=== PATIENT | male | born 1930 ===

== ENCOUNTER 2017-05-28 21:57 | Inpatient (IN) | payer MEDICARE, MEDICAID ==
[2017-05-28] MEDS ORDERED: Iohexol 240 (50 ml) PO ONE (22:31)
[2017-05-28] MEDS ORDERED: Sodium Chloride 0.9% 1,000 ML IV STA (22:32)
[2017-05-28] MEDS ORDERED: Iohexol 240 (50 ml) ONE (23:04)
[2017-05-28 23:34] LABS: VENOUS BLOOD GAS PCO2 41 mmHg (40-60); VENOUS BLOOD GAS PO2 21 mm/Hg (30-55); VENOUS BLOOD PH 7.13 (7.32-7.43)
[2017-05-28 23:44] LABS: BASO # 0.1 K/uL (0.0-0.2); BASO % 0.5 % (0.0-2.0); EOS % 0.3 % (0.0-4.0); LYMPH # 3.8 K/uL (1.0-4.3); LYMPH % 32.9 % (20.0-40.0); MEAN CORPUSCULAR HEMOGLOBIN 29.2 pg (27.0-31.0); MEAN CORPUSCULAR HGB CONC 30.8 g/dL (33.0-37.0); MEAN PLATELET VOLUME 7.1 fl (7.2-11.7); MONO # 0.8 K/uL (0.0-0.8); MONO % 6.6 % (0.0-10.0); NEUT # 6.9 K/uL (1.8-7.0); NEUT % 59.7 % (50.0-75.0); NRBC % 2.4 % (0.0-0.0); RBC 2.2 Mil/uL (4.40-5.90); RED CELL DISTRIBUTION WIDTH 22.2 % (11.5-14.5); WHITE BLOOD COUNT 11.5 K/uL (4.8-10.8)
[2017-05-28 23:50] LABS: HEMOGLOBIN 6.4 g/dL (12.0-18.0)
[2017-05-28 23:54] LABS: ABG ALLEN TEST YES; ARTERIAL BLOOD GAS HCO3 17.8 mmol/L (21-28); ARTERIAL BLOOD GAS O2 SAT 97.9 % (95-98); ARTERIAL BLOOD GAS PCO2 21 mm/Hg (35-45); ARTERIAL BLOOD GAS PH 7.41 (7.35-7.45); ARTERIAL BLOOD GAS PO2 86 mm/Hg (80-100); ARTERIAL BLOOD GAS TCO2 13.9 mmol/L (22-28)
[2017-05-28 23:57] LABS: ALB/GLOB RATIO 0.8 (1.0-2.1); ALBUMIN 3.4 g/dL (3.5-5.0); CALCIUM 9.2 mg/dL (8.4-10.2); MAGNESIUM 2.7 MG/DL (1.6-2.3)
[2017-05-29] MEDS ORDERED: Sodium Chloride 0.9% 1,000 ML IV STA (00:05)
[2017-05-29 00:07] LABS: TROPONIN I 0.064 ng/mL (0.00-0.120)
--- NOTE | 2017-05-29 00:45 | ED PDOC ---
HPI: Abdomen Time Seen by Provider: 05/28/17 22:13 Chief Complaint (Nursing): GI Problem History Per: Patient, Family Onset/Duration Of Symptoms: Days Outside of [place] travel?: No Current Symptoms Are (Timing): Still Present Location Of Pain/Discomfort: Diffuse Quality Of Discomfort: Unable To Describe Additional Complaint(s): Hx of prostate CA brought in by son for diarrhea, weakness, and refusing to take medications. Son reports that for the past month he's had liquidy stools multiple times a day, however no blood/black stools, no vomiting. States that he has progressively become more weak, states that he used to drink alcohol but no longer does. Patient reports that he has "pain all over", states that it is worst in his abdomen. Son reports no fevers. No recent travel. Past Medical History Reviewed: Historical Data, Nursing Documentation, Vital Signs Vital Signs: Last Vital Signs Temp 98.7 F 05/28/17 23:01 Pulse 135 H 05/28/17 22:15 Resp 18 05/28/17 22:00 BP 144/85 05/28/17 22:00 Pulse Ox 96 05/28/17 22:15 - Medical History PMH: Pneumonia - Family History Family History: States: Unknown Family Hx - Home Medications Home Medications: Ambulatory Orders Medication Instructions Recorded Amoxicillin/Potassium Clav 1 tab PO BID 05/29/17 [Amoxicillin/Clavulanate Potassium 875 mg-125 ] Aspirin [Lo-Dose Aspirin EC] 81 mg PO DAILY 05/29/17 Docusate Sodium [Stool Softener] 100 mg PO TID 05/29/17 Ergocalciferol (Vitamin D2) 50,000 unit PO QWK 05/29/17 [Vitamin D2] Tamsulosin [Flomax] 0.4 mg PO ONCE 05/29/17 Tramadol HCl [Ultram] 50 mg PO Q6 05/29/17 - Allergies Allergies/Adverse Reactions: Allergies Allergy/AdvReac Type Severity Reaction Status Date / Time No Known Allergies Allergy Verified 05/28/17 21:59 Review of Systems ROS Statement: Except As Marked, All Systems Reviewed And Found Negative Constitutional: Negative for: Fever, Chills Gastrointestinal: Positive for: Abdominal Pain, Diarrhea Physical Exam - Reviewed Nursing Documentation Reviewed: Yes Vital Signs Reviewed: Yes - Physical Exam Appears: Positive for: Non-toxic, No Acute Distress. Negative for: Well ( tremulous, cachectic) Head Exam: Positive for: ATRAUMATIC, NORMAL INSPECTION, NORMOCEPHALIC Skin: Positive for: Normal Color, Warm, DRY Eye Exam: Positive for: EOMI, Normal appearance, PERRL ENT: Positive for: Normal ENT Inspection Neck: Positive for: Normal, Painless ROM Cardiovascular/Chest: Positive for: Regular Rate, Rhythm Respiratory: Positive for: CNT, Normal Breath Sounds Gastrointestinal/Abdominal: Positive for: Normal Exam, Bowel Sounds, Tenderness. Negative for: Organomegaly, Mass, Guarding, Rebound Back: Positive for: Normal Inspection Rectal: Positive for: Normal Exam (normal brown stool, non-melanotic) Extremity: Positive for: Normal ROM Neurologic/Psych: Positive for: Alert, slate picker II-XII. Negative for: Oriented ( confused) - Laboratory Results Result Diagrams: 05/28/17 23:30 05/28/17 23:30 - Critical Care Total Time (In Min): 90 Medical Decision Making Medical Decision Making: A/P: Hx of prostate CA p/w diarrhea, body aches, abdominal pain, weakness -Pt. ill appearing -anemic, stool guiac +, however no melena/dark stools -patient vomited after contrast, however not coffee grounds -pending CT Abdomen -will transfuse 4AM Patient started to have increased respiratory rate, vomited, while being changed patient became pale and became bradycardic and then coded. CPR initiated , epi given, ROSC achieved. During central line attempts, son decided to cease further attempts. Patient had extremely poor peripheral and central access, was able to cannulate vessel however, guide wire repeatedly kinked on several attempts. Son decided to make him DNR. Pt. currently intubated in very critical condition. Procedures - Central Line Central Line Lumen: triple Central Line Postion: internal jugular (R), internal jugular (L), femoral (R), femoral (L) Complications: unable to cannulate - Intubation Intubation Method: orotracheal Tube Size (cm): 7.0 Breath Sounds after Intubation: equal Intubation Complications: no complications Post Intubation Xray: Yes Disposition - Clinical Impression Clinical Impression: Cardiac arrest, Lactic acidosis - Disposition Disposition Time: 04:27 Condition: CRITICAL Forms: [place] (Swazi)
[2017-05-29] MEDS ORDERED: Iohexol 240 (50 ml) PO ONE (01:08)
[2017-05-29] MEDS ORDERED: Iohexol 240 (50 ml) ONE (01:37)
[2017-05-29] MEDS ORDERED: Piperacillin/Tazobact 3.375 GM in Sodium Chloride 0.9% 100 ML IVPB STA (02:23)
[2017-05-29] MEDS ORDERED: Lidocaine 1% Inj (20ml) ONE (02:59)
[2017-05-29 03:02] LABS: VENOUS BLOOD GAS BASE EXCESS -6.2 mmol/L (0.0-2.0); VENOUS BLOOD GAS PCO2 31 mmHg (40-60); VENOUS BLOOD GAS PO2 14 mm/Hg (30-55); VENOUS BLOOD PH 7.37 (7.32-7.43)
[2017-05-29] MEDS ORDERED: Iohexol 300 100 ML IJ ONE (03:04)
[2017-05-29] MEDS ORDERED: Sodium Chloride 0.9% 100 ML ONE (03:04)
--- NOTE | 2017-05-29 04:25 | CP.PCM.HP ---
History of Present Illness - History of Present Illness History of Present Illness: CC: body aches HPI: 87F PMH prostate ca presented to ED for a one month history of moderate persistent nonbloody diarrhea, associated with one day of body aches. In the ED , patient acutely became tachypneic, tachycardic, had an episode of nonbloody nonbilious brown emesis, and became pulseless. CODE BLUE called, spontaneous ROSC achieved, however pt continues to be unresponsive, +intubated. OGT out appx 300 cc coffee ground. 2 units PRBC initiated. After CODE BLUE, during central line patient, patient's son refused further attempts, made patient DNR, and does not wish to have vasopressors initiated if indicated. Patient to be admitted to ICU. PMD: Dr. Burgess Present on Admission - Present on Admission Any Indicators Present on Admission: No Past Patient History - Past Social History Smoking Status: Former Smoker - CARDIAC Hx Hypotension: Yes - PULMONARY Hx Pneumonia: Yes - GENITOURINARY/GYNECOLOGICAL Hx Prostate Cancer: Yes - PSYCHIATRIC Hx Substance Use: No - SURGICAL HISTORY Hx Surgeries: No Meds Allergies/Adverse Reactions: Allergies Allergy/AdvReac Type Severity Reaction Status Date / Time No Known Allergies Allergy Verified 05/28/17 21:59 Physical Exam - Constitutional Appears: Cachectic, Chronically Ill Additional comments: INTUBATED, UNRESPONSIVE - Head Exam Head Exam: ATRAUMATIC, NORMOCEPHALIC - Eye Exam Eye Exam: EOMI, PERRL - ENT Exam ENT Exam: Mucous Membranes Moist, Normal Exam - Respiratory Exam Respiratory Exam: Clear to Auscultation Bilateral, NORMAL BREATHING PATTERN. absent: Rales, Rhonchi Additional comments: VENTED - Cardiovascular Exam Cardiovascular Exam: RRR, +S1, +S2 - GI/Abdominal Exam GI & Abdominal Exam: Normal Bowel Sounds, Soft. absent: Mass, Organomegaly - Extremities Exam Additional comments: NO RASH, COOL TO TOUCH - Back Exam Back exam: absent: CVA tenderness (L), CVA tenderness (R) - Neurological Exam Additional comments: UNRESPONSIVE TO PAINFUL OR VERBAL STIMULI - Psychiatric Exam Additional comments: UNRESPONSIVE - Skin Skin Exam: Dry, Pallor Results - Vital Signs Recent Vital Signs: Last Vital Signs Temp 98.7 F 05/28/17 23:01 Pulse 135 H 05/28/17 22:15 Resp 18 05/28/17 22:00 BP 144/85 03/05/18 22:00 Pulse Ox 96 05/28/17 22:15 - Labs Result Diagrams: 05/28/17 23:30 05/28/17 23:30 Labs: Laboratory Results - last 24 hr 05/28/17 05/28/17 05/28/17 23:20 23:30 23:30 WBC 11.5 H RBC 2.20 L Hgb 6.4 L* Hct 20.9 L MCV 95.0 H MCH 29.2 MCHC 30.8 L RDW 22.2 H Plt Count 329 MPV 7.1 L Neut % (Auto) 59.7 Lymph % (Auto) 32.9 [place] % (Auto) 6.6 Eos % (Auto) 0.3 Baso % (Auto) 0.5 Neut # (Auto) 6.9 Lymph # (Auto) 3.8 [place] # (Auto) 0.8 Eos # (Auto) 0.0 Baso # (Auto) 0.1 pCO2 pO2 21 L HCO3 ABG pH ABG Total CO2 ABG O2 Saturation ABG Base Excess [place] Test ABG Potassium VBG pH 7.13 L* VBG pCO2 41 VBG HCO3 11.1 VBG Total CO2 14.9 L VBG O2 Sat (Calc) 25.4 L VBG Base Excess -15.0 L VBG Potassium 5.1 A-a O2 Difference Sodium 140.0 143 Chloride 106.0 101 Glucose 71 L Lactate 14.9 H* FiO2 21.0 Crit Value Called To marjorie Cruz md Crit Value Called By 302 Crit Value Read Back Y Blood Gas Notified Time 2333 Potassium 5.1 H Carbon Dioxide 15 L Anion Gap 32 H BUN 46 H Creatinine 1.5 Est GFR ( Amer) 54 Est GFR (Non-Af Amer) 44 Random Glucose 81 Calcium 9.2 Phosphorus 5.2 H Magnesium 2.7 H Total Bilirubin 0.6 AST 113 H ALT 23 Alkaline Phosphatase 635 H Troponin I 0.0640 Total Protein 7.7 Albumin 3.4 L Globulin 4.3 H Albumin/Globulin Ratio 0.8 L Lipase 76 Arterial Blood Potassium Venous Blood Potassium 5.1 Urine Color Urine Clarity Urine pH Ur Specific [place] Urine Protein Urine Glucose (UA) Urine Ketones Urine Blood Urine Nitrate Urine Bilirubin Urine Urobilinogen Ur Leukocyte Esterase Stool Occult Blood Blood Type Blood Type Confirm Antibody Screen Crossmatch BBK History Checked 05/28/17 05/29/17 05/29/17 23:48 00:15 00:16 WBC RBC Hgb Hct MCV MCH MCHC RDW Plt Count MPV Neut % (Auto) Lymph % (Auto) [place] % (Auto) Eos % (Auto) Baso % (Auto) Neut # (Auto) Lymph # (Auto) [place] # (Auto) Eos # (Auto) Baso # (Auto) pCO2 21 L pO2 86 HCO3 17.8 L ABG pH 7.41 ABG Total CO2 13.9 L ABG O2 Saturation 97.9 ABG Base Excess -9.1 L [place] Test Yes ABG Potassium 5.3 H VBG pH VBG pCO2 VBG HCO3 VBG Total CO2 VBG O2 Sat (Calc) VBG Base Excess VBG Potassium A-a O2 Difference 37.0 Sodium 138.0 Chloride 108.0 H Glucose 81 Lactate 11.5 H* FiO2 21.0 Crit Value Called To marjorie Cruz md Crit Value Called By [facility] Crit Value Read Back Y Blood Gas Notified Time 1601 Potassium Carbon Dioxide Anion Gap BUN Creatinine Est GFR ( Amer) Est GFR (Non-Af Amer) Random Glucose Calcium Phosphorus Magnesium Total Bilirubin AST ALT Alkaline Phosphatase Troponin I Total Protein Albumin Globulin Albumin/Globulin Ratio Lipase Arterial Blood Potassium 5.3 H Venous Blood Potassium Urine Color TEST NOT PERFORMED Urine Clarity TEST NOT PERFORMED Urine pH TEST NOT PERFORMED Ur Specific [place] TEST NOT PERFORMED Urine Protein TEST NOT PERFORMED Urine Glucose (UA) TEST NOT PERFORMED Urine Ketones TEST NOT PERFORMED Urine Blood TEST NOT PERFORMED Urine Nitrate TEST NOT PERFORMED Urine Bilirubin TEST NOT PERFORMED Urine Urobilinogen TEST NOT PERFORMED Ur Leukocyte Esterase TEST NOT PERFORMED Stool Occult Blood Positive H Blood Type Blood Type Confirm O POSITIVE Antibody Screen Crossmatch BBK History Checked 05/29/17 05/29/17 01:05 02:50 WBC RBC Hgb Hct MCV MCH MCHC RDW Plt Count MPV Neut % (Auto) Lymph % (Auto) [place] % (Auto) Eos % (Auto) Baso % (Auto) Neut # (Auto) Lymph # (Auto) [place] # (Auto) Eos # (Auto) Baso # (Auto) pCO2 pO2 14 L HCO3 ABG pH ABG Total CO2 ABG O2 Saturation ABG Base Excess [place] Test ABG Potassium VBG pH 7.37 VBG pCO2 31 L VBG HCO3 17.9 VBG Total CO2 18.9 L VBG O2 Sat (Calc) 19.4 L VBG Base Excess -6.2 L VBG Potassium 5.3 H A-a O2 Difference Sodium 139.0 Chloride 109.0 H Glucose 72 L Lactate 7.4 H* FiO2 21.0 Crit Value Called To Nancy amador md Crit Value Called By 302 Crit Value Read Back Y Blood Gas Notified Time 302 Potassium Carbon Dioxide Anion Gap BUN Creatinine Est GFR ( Amer) Est GFR (Non-Af Amer) Random Glucose Calcium Phosphorus Magnesium Total Bilirubin AST ALT Alkaline Phosphatase Troponin I Total Protein Albumin Globulin Albumin/Globulin Ratio Lipase Arterial Blood Potassium Venous Blood Potassium 5.3 H Urine Color Urine Clarity Urine pH Ur Specific [place] Urine Protein Urine Glucose (UA) Urine Ketones Urine Blood Urine Nitrate Urine Bilirubin Urine Urobilinogen Ur Leukocyte Esterase Stool Occult Blood Blood Type O POSITIVE Blood Type Confirm Antibody Screen Negative Crossmatch See Detail BBK History Checked No verified bt Assessment & Plan - Assessment and Plan (Free Text) Plan: 87F PMH prostate ca presented to ED for a one month history of moderate persistent nonbloody diarrhea, associated with one day of body aches. In the ED , patient acutely became tachypneic, tachycardic, had an episode of nonbloody nonbilious brown emesis, and became apneic and pulseless. CODE BLUE called, spontaneous ROSC achieved, however pt continues to be unresponsive, +intubated. OGT out appx 300 cc coffeeground. 2 units PRBC initiated. After CODE BLUE, during central line patient, patient's son refused further attempts, made patient DNR, and does not wish to have vasopressors initiated if indicated. Patient to be admitted to ICU. PATIENT IS DNR. Son does not want any vasopressors if indicated. Acute Respiratory Failure - s/p CODE BLUE - patient intubated, unresponsive - AC 16 350 100 5 - CXR pending Acute GIB Acute blood loss anemia - CT abd pending - 2 units PRBC initiated - total 3250 cc NS administered - OGT in place out appx 300 cc coffee ground on insertion Hyperkalemia - recheck in AM, pt hydrated - will treat as necessary Azotemia - total 3250 cc NS administered in ED - recheck BUN in AM Hx Prostate Ca - stable VTE ppx active GIB All discussions and evaluations with senior it project manager.
--- NOTE | 2017-05-29 06:00 | CT ---
EXAM: CT Abdomen and Pelvis With Intravenous Contrast CLINICAL HISTORY: 87 years old, male; Pain; Abdominal pain; Acute; Additional info: HX of prostate ca, weakness, abd pain, diarrhea TECHNIQUE: Axial computed tomography images of the abdomen and pelvis with intravenous contrast. All CT scans at this facility use one or more dose reduction techniques, viz.: automated exposure control; ma/kV adjustment per patient size (including targeted exams where dose is matched to indication; i.e. head); or iterative reconstruction technique. 535 images are submitted. Oral contrast was administered. Coronal and sagittal reformatted images were created and reviewed. CONTRAST: 95 mL of omnipaque 300 administered intravenously. COMPARISON: No relevant prior studies available. FINDINGS: Lower thorax: There is small right basilar pneumothorax seen on image 32 series 3. This is incompletely visualized. Small right more than left pleural effusion.Bibasilar right middle lobe and lingular nonspecific infiltrates and consolidation are present, consistent with atelectasis or pneumonia. Cardiomegaly. ABDOMEN: Liver: Fatty liver.There is a focal liver hypodensity that cannot be further characterized on the current examination. Gallbladder and bile ducts: Partially contracted gallbladder with gallbladder wall thickening and gallstones seen on image 80 series 3. Correlation with patient's voiding status is recommended. Pancreas: Unremarkable. No mass. No ductal dilation. Spleen: Unremarkable. No splenomegaly. Adrenals: Unremarkable. No mass. Kidneys and ureters: Nonobstructive left upper pole renal stone. There is physiologic distention of bilateral ureters. Stomach and bowel: Large amount of stool in the colon with rectal distention and colonic wall thickening.Correlation with patient's clinical history of constipation versus stool related colitis is recommended. There are fluid-filled MID to distal small bowel loops with air-fluid levels without contrast with very difficult to visualize transition. Correlation with clinical data is recommended to evaluate for partial versus early small bowel obstruction. Close clinical followup is recommended. There is anal distention with stool seen on image 161 series 3 likely representing incontinence. Appendix: The appendix not identified with complete certainty due to unopacified cecum and distal small bowel. There is lack of intra-abdominal fat. If clinical concern remains, a repeat study with thin sections after an appropriate time interval may allow oral contrast to opacify the cecum. PELVIS: Bladder: Bladder distention 11.4 cm . Correlation with patient's voiding status is recommended. Reproductive: Mild enlargement of prostate gland. ABDOMEN and PELVIS: Intraperitoneal space: Unremarkable. No free air. No significant fluid collection. Bones/joints: There is diffuse sclerotic and amorphous appearance to the bones. Correlation with patient's clinical history of osseous metastatic disease is recommended. Multiple low chronic compression fracture deformities. Soft tissues: Unremarkable. Vasculature: The aorta demonstrates calcified plaque and is mildly ectatic but normal in caliber. Dense calcified atherosclerotic plaque involving the proximal SMA. There is enhancement of distal SMA. There are moderate atherosclerotic calcified plaques involving bilateral renal arteries. No abdominal aortic aneurysm. Lymph nodes: Unremarkable. No enlarged lymph nodes. Tubes, lines and devices: There is feeding tube in the gastric fundus. IMPRESSION: 1. There is small right basilar pneumothorax seen on image 32 series 3. This is incompletely visualized. 2. Small right more than left pleural effusion.Bibasilar right middle lobe and lingular nonspecific infiltrates and consolidation are present, consistent with atelectasis or pneumonia. 3. Large amount of stool in the colon with rectal distention and colonic wall thickening.Correlation with patient's clinical history of constipation versus stool related colitis is recommended. 4. There are fluid-filled MID to distal small bowel loops with air-fluid levels without contrast with very difficult to visualize transition. These findings can represent ileus versus partial versus developing small bowel obstruction. Correlation with clinical data is recommended to evaluate for partial versus early small bowel obstruction. Close clinical followup is recommended. 5. Osseous metastatic disease.
[2017-05-29 07:02] VITALS: O2SAT 100
[2017-05-29] MEDS ORDERED: Influenza Vaccine 18yr & older 0.5 ML/45 MCG SYR IM ONE (07:27)
--- NOTE | 2017-05-29 07:27 | RAD ---
PROCEDURE: CHEST RADIOGRAPH, 1 VIEW HISTORY: r/o PNA COMPARISON: None available. FINDINGS: Endotracheal tube identified placed terminating at the lower trachea approximately 3.5 cm above the elvia. Further comminuted tube is identified terminating at the left upper quadrant abdomen. Telemetry at wires and external pacemaker device obscures the exam. LUNGS: Heterogeneous infiltrates affects the mid inferior right lung zone appear rather dense with borderline similar changes in the medial left base. PLEURA: No pneumothorax or pleural fluid seen. CARDIOVASCULAR: Cardiac silhouette appears normal in size. Pulmonary vascular pattern is obscured at the right eye infiltrates and appears unremarkable the left. OSSEOUS STRUCTURES: No significant abnormalities. VISUALIZED UPPER ABDOMEN: Normal. OTHER FINDINGS: None. IMPRESSION: Extensive right-sided infiltrate at the mid to inferior right lung zone, borderline at the medial left base. No definite pleural effusion or pneumothorax. Telemetry wires and external pacer device obscures exam.
[2017-05-29 08:00] LABS: SQUAMOUS EPITHIAL 1 /hpf (0-5); URINE BACTERIA RARE (<OCC); URINE BILIRUBIN NEGATIVE (NEGATIVE); URINE BLOOD MODERATE (NEGATIVE); URINE CLARITY CLOUDY (Clear); URINE COLOR YELLOW (YELLOW); URINE GLUCOSE (UA) NEG (Normal); URINE LEUKOCYTE ESTERASE NEG Leu/uL (Negative); URINE NITRATE NEGATIVE (NEGATIVE); URINE PROTEIN 30 mg/dL (NEGATIVE); URINE UROBILINOGEN 0.2-1.0 mg/dL (0.2-1.0)
[2017-05-29 08:17] VITALS: RESP 35
[2017-05-29] MEDS ORDERED: Sodium Chloride 0.9% 500 ML IV ONE (08:39)
[2017-05-29 08:45] VITALS: BP 62/48; PULSE 120; TEMP 98.7
[2017-05-29] MEDS ORDERED: Pantoprazole 40 MG in Sodium Chloride 0.9% 100 ML IVPB SCH (09:00)
[2017-05-29 09:18] LABS: HEMOGLOBIN 8.1 g/dL (12.0-18.0); MEAN CORPUSCULAR HEMOGLOBIN 29.3 pg (27.0-31.0); MEAN CORPUSCULAR HGB CONC 33.2 g/dL (33.0-37.0); RBC 2.78 Mil/uL (4.40-5.90); RED CELL DISTRIBUTION WIDTH 19.6 % (11.5-14.5); WHITE BLOOD COUNT 5.4 K/uL (4.8-10.8)
[2017-05-29 09:21] LABS: MEAN CELL VOLUME 88.2 fl (80.0-94.0)
[2017-05-29 09:31] LABS: CALCIUM 6.9 mg/dL (8.4-10.2); MAGNESIUM 2.4 MG/DL (1.6-2.3)
[2017-05-29 09:34] LABS: ABG ALLEN TEST YES; ARTERIAL BLOOD GAS HCO3 14.5 mmol/L (21-28); ARTERIAL BLOOD GAS HEMOGLOBIN 7.9 g/dL (11.7-17.4); ARTERIAL BLOOD GAS O2 CONTENT 10.6 ML/dL (15-23); ARTERIAL BLOOD GAS O2 SAT 96.6 % (95-98); ARTERIAL BLOOD GAS PCO2 23 mm/Hg (35-45); ARTERIAL BLOOD GAS PH 7.31 (7.35-7.45); ARTERIAL BLOOD GAS PO2 67 mm/Hg (80-100); ARTERIAL BLOOD GAS TCO2 12.3 mmol/L (22-28)
[2017-05-29] MEDS ORDERED: DOPamine 400mg/250ml D5W 400 MG/250 ML BAG IV ONE ×2 (09:40)
[2017-05-29] MEDS ORDERED: Dextrose 50% SYRINGE Inj (50 ml) ONE ×2 (09:53→10:21)
--- NOTE | 2017-05-29 10:04 | CP.PCM.CON ---
<Jesse Evans - Last Filed: 05/29/17 10:04> History of Present Illness - History of Present Illness History of Present Illness: PGY5 GI Fellow Consult Note Patient is an 87yo male with PMHx significant for EtOH abuse, prostate cancer, HTN who was brought to the emergency room by his son for diarrhea and diffuse body aches. For the last month or more the patient has had decreased appetite and complaint of abdominal pain. He too has had diarrhea with more than 4-5 episodes daily despite poor intake. As symptoms persisted and his father complained of diffuse body aches, son brought him to the ED for further evaluation. In the ED the patient suffered cardiopulmonary arrest and was resuscitated by ACLS protocol and was intubated. He was transfused two units of PRBCs when his HGb was noted to be 6 on CBC. Following this episode, the patient 's son asked for DNR status and refused pressor support. Currently, he is in the ICU where he remains intubated on mechanical ventilation and has OG tube, rectal tube and aquino catheters placed. Our service was consulted for anemia and dark black output in to the OG tube. During discussion with the son and , they decided wanted to make the patient full code. While I was at bedside, the patient became bradycardic and eventually suffered cardiac arrest. Code blue was called and is currently ongoing. PMHx: See HPI PSHx: Unable to obtain at this time FHx: Unable to obtain at this time Social: Former EtOH abuse, former tobacco use, no illicit drug use Endo: Unable to assess at this time 12 system ROS cannot be completed given clinical condition Past Patient History - Past Medical History & Family History Past Medical History?: Yes - Past Social History Smoking Status: Former Smoker - CARDIAC Hx Hypotension: Yes - PULMONARY Hx Pneumonia: Yes - NEUROLOGICAL HX Cerebrovascular Accident: Yes - HEMATOLOGICAL/ONCOLOGICAL Hx Cancer: Yes - MUSCULOSKELETAL/RHEUMATOLOGICAL Hx Falls: No - GASTROINTESTINAL Hx Diarrhea: Yes - GENITOURINARY/GYNECOLOGICAL Hx Prostate Cancer: Yes - PSYCHIATRIC Hx Substance Use: No - SURGICAL HISTORY Hx Surgeries: No Meds Allergies/Adverse Reactions: Allergies Allergy/AdvReac Type Severity Reaction Status Date / Time No Known Allergies Allergy Verified 05/28/17 21:59 - Medications Medications: Current Medications Pantoprazole Sodium 40 mg/ (Sodium Chloride) 100 mls @ 100 mls/hr IVPB Q5H DALIA PRN Reason: Per Protocol Piperacillin Sod/Tazobactam (Sod 3.375 gm/ Sodium Chloride) 100 mls @ 100 mls/ hr IVPB RQ8 DALIA PRN Reason: Protocol Physical Exam - Constitutional Appears: Cachectic, Chronically Ill Additional comments: intubated, not responding to tactile stimuli - Eye Exam Eye Exam: PERRL - ENT Exam ENT Exam: Mucous Membranes Dry Additional comments: OG tube in place, black fluid draining - Respiratory Exam Respiratory Exam: Clear to Auscultation Bilateral. absent: Rales, Rhonchi, Wheezes - Cardiovascular Exam Cardiovascular Exam: Tachycardia, +S1, +S2 Additional comments: patient became bradycardic and ultimately suffered cardiac arrest - GI/Abdominal Exam GI & Abdominal Exam: Normal Bowel Sounds, Soft. absent: Distended, Firm, Organomegaly, Rigid, Tenderness - Rectal Exam Additional comments: brown stool in rectal tube - Extremities Exam Extremities exam: Positive for: normal inspection. Negative for: pedal edema - Skin Skin Exam: Dry, Warm Results - Vital Signs Recent Vital Signs: Last Vital Signs Temp 98.7 F 05/29/17 08:35 Pulse 120 H 05/29/17 08:35 Resp 35 H 05/29/17 08:35 BP 62/48 L 05/29/17 08:35 Pulse Ox 100 05/29/17 08:35 - Labs Result Diagrams: 05/29/17 08:50 05/29/17 08:50 Labs: Laboratory Results - last 24 hr 05/28/17 05/28/17 05/28/17 23:20 23:30 23:30 WBC 11.5 H RBC 2.20 L Hgb 6.4 L* Hct 20.9 L MCV 95.0 H MCH 29.2 MCHC 30.8 L RDW 22.2 H Plt Count 329 MPV 7.1 L Neut % (Auto) 59.7 Lymph % (Auto) 32.9 Payne % (Auto) 6.6 Eos % (Auto) 0.3 Baso % (Auto) 0.5 Neut # (Auto) 6.9 Lymph # (Auto) 3.8 Payne # (Auto) 0.8 Eos # (Auto) 0.0 Baso # (Auto) 0.1 pCO2 pO2 21 L HCO3 ABG pH ABG Total CO2 ABG O2 Saturation ABG O2 Content ABG Base Excess ABG Hemoglobin ABG Carboxyhemoglobin POC ABG HHb (Measured) ABG Methemoglobin ABG O2 Capacity [place] Test ABG Potassium VBG pH 7.13 L* VBG pCO2 41 VBG HCO3 11.1 VBG Total CO2 14.9 L VBG O2 Sat (Calc) 25.4 L VBG Base Excess -15.0 L VBG Potassium 5.1 A-a O2 Difference Hgb O2 Saturation Sodium 140.0 143 Chloride 106.0 101 Glucose 71 L Lactate 14.9 H* Vent Mode Mechanical Rate FiO2 21.0 Tidal Volume PEEP Crit Value Called To marjorie Cruz md Crit Value Called By Becka Crit Value Read Back Y Blood Gas Notified Time 2333 Potassium 5.1 H Carbon Dioxide 15 L Anion Gap 32 H BUN 46 H Creatinine 1.5 Est GFR ( Amer) 54 Est GFR (Non-Af Amer) 44 POC Glucose (mg/dL) Random Glucose 81 Calcium 9.2 Phosphorus 5.2 H Magnesium 2.7 H Total Bilirubin 0.6 AST 113 H ALT 23 Alkaline Phosphatase 635 H Troponin I 0.0640 Total Protein 7.7 Albumin 3.4 L Globulin 4.3 H Albumin/Globulin Ratio 0.8 L Lipase 76 Arterial Blood Potassium Venous Blood Potassium 5.1 Urine Color Urine Clarity Urine pH Ur Specific [place] Urine Protein Urine Glucose (UA) Urine Ketones Urine Blood Urine Nitrate Urine Bilirubin Urine Urobilinogen Ur Leukocyte Esterase Urine RBC (Auto) Urine Microscopic WBC Ur Squamous Epith Cells Urine Bacteria Stool Occult Blood Blood Type Blood Type Confirm Antibody Screen Crossmatch BBK History Checked 05/28/17 05/29/17 05/29/17 23:48 00:15 00:16 WBC RBC Hgb Hct MCV MCH MCHC RDW Plt Count MPV Neut % (Auto) Lymph % (Auto) Payne % (Auto) Eos % (Auto) Baso % (Auto) Neut # (Auto) Lymph # (Auto) Payne # (Auto) Eos # (Auto) Baso # (Auto) pCO2 21 L pO2 86 HCO3 17.8 L ABG pH 7.41 ABG Total CO2 13.9 L ABG O2 Saturation 97.9 ABG O2 Content ABG Base Excess -9.1 L ABG Hemoglobin ABG Carboxyhemoglobin POC ABG HHb (Measured) ABG Methemoglobin ABG O2 Capacity [place] Test Yes ABG Potassium 5.3 H VBG pH VBG pCO2 VBG HCO3 VBG Total CO2 VBG O2 Sat (Calc) VBG Base Excess VBG Potassium A-a O2 Difference 37.0 Hgb O2 Saturation Sodium 138.0 Chloride 108.0 H Glucose 81 Lactate 11.5 H* Vent Mode Mechanical Rate FiO2 21.0 Tidal Volume PEEP Crit Value Called To marjorie Cruz md Crit Value Called By 302 Crit Value Read Back Y Blood Gas Notified Time 2353 Potassium Carbon Dioxide Anion Gap BUN Creatinine Est GFR ( Amer) Est GFR (Non-Af Amer) POC Glucose (mg/dL) Random Glucose Calcium Phosphorus Magnesium Total Bilirubin AST ALT Alkaline Phosphatase Troponin I Total Protein Albumin Globulin Albumin/Globulin Ratio Lipase Arterial Blood Potassium 5.3 H Venous Blood Potassium Urine Color TEST NOT PERFORMED Urine Clarity TEST NOT PERFORMED Urine pH TEST NOT PERFORMED Ur Specific [place] TEST NOT PERFORMED Urine Protein TEST NOT PERFORMED Urine Glucose (UA) TEST NOT PERFORMED Urine Ketones TEST NOT PERFORMED Urine Blood TEST NOT PERFORMED Urine Nitrate TEST NOT PERFORMED Urine Bilirubin TEST NOT PERFORMED Urine Urobilinogen TEST NOT PERFORMED Ur Leukocyte Esterase TEST NOT PERFORMED Urine RBC (Auto) Urine Microscopic WBC Ur Squamous Epith Cells Urine Bacteria Stool Occult Blood Positive H Blood Type Blood Type Confirm O POSITIVE Antibody Screen Crossmatch BBK History Checked 05/29/17 05/29/17 05/29/17 01:05 02:50 06:59 WBC RBC Hgb Hct MCV MCH MCHC RDW Plt Count MPV Neut % (Auto) Lymph % (Auto) Payne % (Auto) Eos % (Auto) Baso % (Auto) Neut # (Auto) Lymph # (Auto) Payne # (Auto) Eos # (Auto) Baso # (Auto) pCO2 pO2 14 L HCO3 ABG pH ABG Total CO2 ABG O2 Saturation ABG O2 Content ABG Base Excess ABG Hemoglobin ABG Carboxyhemoglobin POC ABG HHb (Measured) ABG Methemoglobin ABG O2 Capacity [place] Test ABG Potassium VBG pH 7.37 VBG pCO2 31 L VBG HCO3 17.9 VBG Total CO2 18.9 L VBG O2 Sat (Calc) 19.4 L VBG Base Excess -6.2 L VBG Potassium 5.3 H A-a O2 Difference Hgb O2 Saturation Sodium 139.0 Chloride 109.0 H Glucose 72 L Lactate 7.4 H* Vent Mode Mechanical Rate FiO2 21.0 Tidal Volume PEEP Crit Value Called To Nancy amador md Crit Value Called By 302 Crit Value Read Back Y Blood Gas Notified Time 302 Potassium Carbon Dioxide Anion Gap BUN Creatinine Est GFR ( Amer) Est GFR (Non-Af Amer) POC Glucose (mg/dL) Random Glucose Calcium Phosphorus Magnesium Total Bilirubin AST ALT Alkaline Phosphatase Troponin I Total Protein Albumin Globulin Albumin/Globulin Ratio Lipase Arterial Blood Potassium Venous Blood Potassium 5.3 H Urine Color Yellow Urine Clarity Cloudy Urine pH 5.0 Ur Specific [place] 1.020 Urine Protein 30 Urine Glucose (UA) Neg Urine Ketones Negative Urine Blood Moderate Urine Nitrate Negative Urine Bilirubin Negative Urine Urobilinogen 0.2-1.0 Ur Leukocyte Esterase Neg Urine RBC (Auto) 1 Urine Microscopic WBC 3 Ur Squamous Epith Cells 1 Urine Bacteria Rare Stool Occult Blood Blood Type O POSITIVE Blood Type Confirm Antibody Screen Negative Crossmatch See Detail BBK History Checked No verified bt 05/29/17 05/29/17 05/29/17 08:50 08:50 09:27 WBC 5.4 D RBC 2.78 L Hgb 8.1 L Hct 24.5 L MCV 88.2 D MCH 29.3 MCHC 33.2 RDW 19.6 H Plt Count 196 D MPV Neut % (Auto) Lymph % (Auto) Payne % (Auto) Eos % (Auto) Baso % (Auto) Neut # (Auto) Lymph # (Auto) Payne # (Auto) Eos # (Auto) Baso # (Auto) pCO2 23 L pO2 67 L HCO3 14.5 L ABG pH 7.31 L ABG Total CO2 12.3 L ABG O2 Saturation 96.6 ABG O2 Content 10.6 L ABG Base Excess -13.3 L ABG Hemoglobin 7.9 L ABG Carboxyhemoglobin 1.4 POC ABG HHb (Measured) 3.3 ABG Methemoglobin 0.7 ABG O2 Capacity 11.0 L [place] Test Yes ABG Potassium VBG pH VBG pCO2 VBG HCO3 VBG Total CO2 VBG O2 Sat (Calc) VBG Base Excess VBG Potassium A-a O2 Difference 617.0 Hgb O2 Saturation 94.6 L Sodium 141 Chloride 108 H Glucose Lactate Vent Mode Prvc/ac Mechanical Rate 16 FiO2 100.0 Tidal Volume 350 PEEP 5 Crit Value Called To Crit Value Called By Crit Value Read Back Blood Gas Notified Time Potassium 5.8 H Carbon Dioxide 14 L Anion Gap 25 H BUN 50 H Creatinine 1.8 H Est GFR ( Amer) 44 Est GFR (Non-Af Amer) 36 POC Glucose (mg/dL) Random Glucose 56 L Calcium 6.9 L Phosphorus 6.5 H Magnesium 2.4 H Total Bilirubin AST ALT Alkaline Phosphatase Troponin I Total Protein Albumin Globulin Albumin/Globulin Ratio Lipase Arterial Blood Potassium Venous Blood Potassium Urine Color Urine Clarity Urine pH Ur Specific [place] Urine Protein Urine Glucose (UA) Urine Ketones Urine Blood Urine Nitrate Urine Bilirubin Urine Urobilinogen Ur Leukocyte Esterase Urine RBC (Auto) Urine Microscopic WBC Ur Squamous Epith Cells Urine Bacteria Stool Occult Blood Blood Type Blood Type Confirm Antibody Screen Crossmatch BBK History Checked 05/29/17 09:51 WBC RBC Hgb Hct MCV MCH MCHC RDW Plt Count MPV Neut % (Auto) Lymph % (Auto) Payne % (Auto) Eos % (Auto) Baso % (Auto) Neut # (Auto) Lymph # (Auto) Payne # (Auto) Eos # (Auto) Baso # (Auto) pCO2 pO2 HCO3 ABG pH ABG Total CO2 ABG O2 Saturation ABG O2 Content ABG Base Excess ABG Hemoglobin ABG Carboxyhemoglobin POC ABG HHb (Measured) ABG Methemoglobin ABG O2 Capacity [place] Test ABG Potassium VBG pH VBG pCO2 VBG HCO3 VBG Total CO2 VBG O2 Sat (Calc) VBG Base Excess VBG Potassium A-a O2 Difference Hgb O2 Saturation Sodium Chloride Glucose Lactate Vent Mode Mechanical Rate FiO2 Tidal Volume PEEP Crit Value Called To Crit Value Called By Crit Value Read Back Blood Gas Notified Time Potassium Carbon Dioxide Anion Gap BUN Creatinine Est GFR ( Amer) Est GFR (Non-Af Amer) POC Glucose (mg/dL) < 20 L* Random Glucose Calcium Phosphorus Magnesium Total Bilirubin AST ALT Alkaline Phosphatase Troponin I Total Protein Albumin Globulin Albumin/Globulin Ratio Lipase Arterial Blood Potassium Venous Blood Potassium Urine Color Urine Clarity Urine pH Ur Specific [place] Urine Protein Urine Glucose (UA) Urine Ketones Urine Blood Urine Nitrate Urine Bilirubin Urine Urobilinogen Ur Leukocyte Esterase Urine RBC (Auto) Urine Microscopic WBC Ur Squamous Epith Cells Urine Bacteria Stool Occult Blood Blood Type Blood Type Confirm Antibody Screen Crossmatch BBK History Checked Assessment & Plan - Assessment and Plan (Free Text) Assessment: Patient is an 87yo male with PMHx significant for EtOH abuse, prostate cancer, HTN who was brought to the emergency room by his son for diarrhea and diffuse body aches -Acute cardiac arrest requiring code blue and ACLS protocol -S/P cardiac arrest yesterday with ROSC -Acute blood loss anemia - suspect upper GI bleeding -H/O EtOH abuse Plan: -Family decided to pursue full code this morning -Will initiate PPI gtt and recommend consideration of octreotide gtt given EtOH abuse history and unknown cirrhosis/EV status -S/P 2 units PRBCs, transfusion support as needed -No overt stigmata of cirrhosis noted -Patient currently code blue with ACLS protocol -Prognosis grave - discussed with family -If patient achieves ROSC and is resuscitated adequately, could consider emergent upper endoscopy; however at this time, patient is in grave condition and would not survive procedure -Will follow - Date & Time Date: 05/29/17 Time: 09:00 <Serafin Clifton - Last Filed: 05/29/17 10:47> Meds - Medications Medications: Current Medications Pantoprazole Sodium 40 mg/ (Sodium Chloride) 100 mls @ 100 mls/hr IVPB Q5H DALIA PRN Reason: Per Protocol Piperacillin Sod/Tazobactam (Sod 3.375 gm/ Sodium Chloride) 100 mls @ 100 mls/ hr IVPB RQ8 DALIA PRN Reason: Protocol Results - Vital Signs Recent Vital Signs: Last Vital Signs Temp 98.7 F 05/29/17 08:35 Pulse 120 H 05/29/17 08:35 Resp 35 H 05/29/17 08:35 BP 62/48 L 05/29/17 08:35 Pulse Ox 100 05/29/17 08:35 - Labs Result Diagrams: 05/29/17 08:50 05/29/17 08:50 Labs: Laboratory Results - last 24 hr 05/28/17 05/28/17 05/28/17 23:20 23:30 23:30 WBC 11.5 H RBC 2.20 L Hgb 6.4 L* Hct 20.9 L MCV 95.0 H MCH 29.2 MCHC 30.8 L RDW 22.2 H Plt Count 329 MPV 7.1 L Neut % (Auto) 59.7 Lymph % (Auto) 32.9 Payne % (Auto) 6.6 Eos % (Auto) 0.3 Baso % (Auto) 0.5 Neut # (Auto) 6.9 Lymph # (Auto) 3.8 Payne # (Auto) 0.8 Eos # (Auto) 0.0 Baso # (Auto) 0.1 pCO2 pO2 21 L HCO3 ABG pH ABG Total CO2 ABG O2 Saturation ABG O2 Content ABG Base Excess ABG Hemoglobin ABG Carboxyhemoglobin POC ABG HHb (Measured) ABG Methemoglobin ABG O2 Capacity [place] Test ABG Potassium VBG pH 7.13 L* VBG pCO2 41 VBG HCO3 11.1 VBG Total CO2 14.9 L VBG O2 Sat (Calc) 25.4 L VBG Base Excess -15.0 L VBG Potassium 5.1 A-a O2 Difference Hgb O2 Saturation Sodium 140.0 143 Chloride 106.0 101 Glucose 71 L Lactate 14.9 H* Vent Mode Mechanical Rate FiO2 21.0 Tidal Volume PEEP Crit Value Called To marjorie Cruz md Crit Value Called By 302 Crit Value Read Back Y Blood Gas Notified Time 2333 Potassium 5.1 H Carbon Dioxide 15 L Anion Gap 32 H BUN 46 H Creatinine 1.5 Est GFR ( Amer) 54 Est GFR (Non-Af Amer) 44 POC Glucose (mg/dL) Random Glucose 81 Calcium 9.2 Phosphorus 5.2 H Magnesium 2.7 H Total Bilirubin 0.6 AST 113 H ALT 23 Alkaline Phosphatase 635 H Troponin I 0.0640 Total Protein 7.7 Albumin 3.4 L Globulin 4.3 H Albumin/Globulin Ratio 0.8 L Lipase 76 Arterial Blood Potassium Venous Blood Potassium 5.1 Urine Color Urine Clarity Urine pH Ur Specific [place] Urine Protein Urine Glucose (UA) Urine Ketones Urine Blood Urine Nitrate Urine Bilirubin Urine Urobilinogen Ur Leukocyte Esterase Urine RBC (Auto) Urine Microscopic WBC Ur Squamous Epith Cells Urine Bacteria Stool Occult Blood Blood Type Blood Type Confirm Antibody Screen Crossmatch BBK History Checked 05/28/17 05/29/17 05/29/17 23:48 00:15 00:16 WBC RBC Hgb Hct MCV MCH MCHC RDW Plt Count MPV Neut % (Auto) Lymph % (Auto) Payne % (Auto) Eos % (Auto) Baso % (Auto) Neut # (Auto) Lymph # (Auto) Payne # (Auto) Eos # (Auto) Baso # (Auto) pCO2 21 L pO2 86 HCO3 17.8 L ABG pH 7.41 ABG Total CO2 13.9 L ABG O2 Saturation 97.9 ABG O2 Content ABG Base Excess -9.1 L ABG Hemoglobin ABG Carboxyhemoglobin POC ABG HHb (Measured) ABG Methemoglobin ABG O2 Capacity [place] Test Yes ABG Potassium 5.3 H VBG pH VBG pCO2 VBG HCO3 VBG Total CO2 VBG O2 Sat (Calc) VBG Base Excess VBG Potassium A-a O2 Difference 37.0 Hgb O2 Saturation Sodium 138.0 Chloride 108.0 H Glucose 81 Lactate 11.5 H* Vent Mode Mechanical Rate FiO2 21.0 Tidal Volume PEEP Crit Value Called To marjorie Cruz md Crit Value Called By 302 Crit Value Read Back Y Blood Gas Notified Time 2357 Potassium Carbon Dioxide Anion Gap BUN Creatinine Est GFR ( Amer) Est GFR (Non-Af Amer) POC Glucose (mg/dL) Random Glucose Calcium Phosphorus Magnesium Total Bilirubin AST ALT Alkaline Phosphatase Troponin I Total Protein Albumin Globulin Albumin/Globulin Ratio Lipase Arterial Blood Potassium 5.3 H Venous Blood Potassium Urine Color TEST NOT PERFORMED Urine Clarity TEST NOT PERFORMED Urine pH TEST NOT PERFORMED Ur Specific [place] TEST NOT PERFORMED Urine Protein TEST NOT PERFORMED Urine Glucose (UA) TEST NOT PERFORMED Urine Ketones TEST NOT PERFORMED Urine Blood TEST NOT PERFORMED Urine Nitrate TEST NOT PERFORMED Urine Bilirubin TEST NOT PERFORMED Urine Urobilinogen TEST NOT PERFORMED Ur Leukocyte Esterase TEST NOT PERFORMED Urine RBC (Auto) Urine Microscopic WBC Ur Squamous Epith Cells Urine Bacteria Stool Occult Blood Positive H Blood Type Blood Type Confirm O POSITIVE Antibody Screen Crossmatch BBK History Checked 05/29/17 05/29/17 05/29/17 01:05 02:50 06:59 WBC RBC Hgb Hct MCV MCH MCHC RDW Plt Count MPV Neut % (Auto) Lymph % (Auto) Payne % (Auto) Eos % (Auto) Baso % (Auto) Neut # (Auto) Lymph # (Auto) Payne # (Auto) Eos # (Auto) Baso # (Auto) pCO2 pO2 14 L HCO3 ABG pH ABG Total CO2 ABG O2 Saturation ABG O2 Content ABG Base Excess ABG Hemoglobin ABG Carboxyhemoglobin POC ABG HHb (Measured) ABG Methemoglobin ABG O2 Capacity [place] Test ABG Potassium VBG pH 7.37 VBG pCO2 31 L VBG HCO3 17.9 VBG Total CO2 18.9 L VBG O2 Sat (Calc) 19.4 L VBG Base Excess -6.2 L VBG Potassium 5.3 H A-a O2 Difference Hgb O2 Saturation Sodium 139.0 Chloride 109.0 H Glucose 72 L Lactate 7.4 H* Vent Mode Mechanical Rate FiO2 21.0 Tidal Volume PEEP Crit Value Called To Nancy amador md Crit Value Called By 302 Crit Value Read Back Y Blood Gas Notified Time 302 Potassium Carbon Dioxide Anion Gap BUN Creatinine Est GFR ( Amer) Est GFR (Non-Af Amer) POC Glucose (mg/dL) Random Glucose Calcium Phosphorus Magnesium Total Bilirubin AST ALT Alkaline Phosphatase Troponin I Total Protein Albumin Globulin Albumin/Globulin Ratio Lipase Arterial Blood Potassium Venous Blood Potassium 5.3 H Urine Color Yellow Urine Clarity Cloudy Urine pH 5.0 Ur Specific [place] 1.020 Urine Protein 30 Urine Glucose (UA) Neg Urine Ketones Negative Urine Blood Moderate Urine Nitrate Negative Urine Bilirubin Negative Urine Urobilinogen 0.2-1.0 Ur Leukocyte Esterase Neg Urine RBC (Auto) 1 Urine Microscopic WBC 3 Ur Squamous Epith Cells 1 Urine Bacteria Rare Stool Occult Blood Blood Type O POSITIVE Blood Type Confirm Antibody Screen Negative Crossmatch See Detail BBK History Checked No verified bt 05/29/17 05/29/17 05/29/17 08:50 08:50 09:27 WBC 5.4 D RBC 2.78 L Hgb 8.1 L Hct 24.5 L MCV 88.2 D MCH 29.3 MCHC 33.2 RDW 19.6 H Plt Count 196 D MPV Neut % (Auto) Lymph % (Auto) Payne % (Auto) Eos % (Auto) Baso % (Auto) Neut # (Auto) Lymph # (Auto) Payne # (Auto) Eos # (Auto) Baso # (Auto) pCO2 23 L pO2 67 L HCO3 14.5 L ABG pH 7.31 L ABG Total CO2 12.3 L ABG O2 Saturation 96.6 ABG O2 Content 10.6 L ABG Base Excess -13.3 L ABG Hemoglobin 7.9 L ABG Carboxyhemoglobin 1.4 POC ABG HHb (Measured) 3.3 ABG Methemoglobin 0.7 ABG O2 Capacity 11.0 L [place] Test Yes ABG Potassium VBG pH VBG pCO2 VBG HCO3 VBG Total CO2 VBG O2 Sat (Calc) VBG Base Excess VBG Potassium A-a O2 Difference 617.0 Hgb O2 Saturation 94.6 L Sodium 141 Chloride 108 H Glucose Lactate Vent Mode Prvc/ac Mechanical Rate 16 FiO2 100.0 Tidal Volume 350 PEEP 5 Crit Value Called To Crit Value Called By Crit Value Read Back Blood Gas Notified Time Potassium 5.8 H Carbon Dioxide 14 L Anion Gap 25 H BUN 50 H Creatinine 1.8 H Est GFR ( Amer) 44 Est GFR (Non-Af Amer) 36 POC Glucose (mg/dL) Random Glucose 56 L Calcium 6.9 L Phosphorus 6.5 H Magnesium 2.4 H Total Bilirubin AST ALT Alkaline Phosphatase Troponin I Total Protein Albumin Globulin Albumin/Globulin Ratio Lipase Arterial Blood Potassium Venous Blood Potassium Urine Color Urine Clarity Urine pH Ur Specific [place] Urine Protein Urine Glucose (UA) Urine Ketones Urine Blood Urine Nitrate Urine Bilirubin Urine Urobilinogen Ur Leukocyte Esterase Urine RBC (Auto) Urine Microscopic WBC Ur Squamous Epith Cells Urine Bacteria Stool Occult Blood Blood Type Blood Type Confirm Antibody Screen Crossmatch BBK History Checked 05/29/17 05/29/17 09:51 10:06 WBC RBC Hgb Hct MCV MCH MCHC RDW Plt Count MPV Neut % (Auto) Lymph % (Auto) Payne % (Auto) Eos % (Auto) Baso % (Auto) Neut # (Auto) Lymph # (Auto) Payne # (Auto) Eos # (Auto) Baso # (Auto) pCO2 pO2 HCO3 ABG pH ABG Total CO2 ABG O2 Saturation ABG O2 Content ABG Base Excess ABG Hemoglobin ABG Carboxyhemoglobin POC ABG HHb (Measured) ABG Methemoglobin ABG O2 Capacity [place] Test ABG Potassium VBG pH VBG pCO2 VBG HCO3 VBG Total CO2 VBG O2 Sat (Calc) VBG Base Excess VBG Potassium A-a O2 Difference Hgb O2 Saturation Sodium Chloride Glucose Lactate Vent Mode Mechanical Rate FiO2 Tidal Volume PEEP Crit Value Called To Crit Value Called By Crit Value Read Back Blood Gas Notified Time Potassium Carbon Dioxide Anion Gap BUN Creatinine Est GFR ( Amer) Est GFR (Non-Af Amer) POC Glucose (mg/dL) < 20 L* < 20 L* Random Glucose Calcium Phosphorus Magnesium Total Bilirubin AST ALT Alkaline Phosphatase Troponin I Total Protein Albumin Globulin Albumin/Globulin Ratio Lipase Arterial Blood Potassium Venous Blood Potassium Urine Color Urine Clarity Urine pH Ur Specific [place] Urine Protein Urine Glucose (UA) Urine Ketones Urine Blood Urine Nitrate Urine Bilirubin Urine Urobilinogen Ur Leukocyte Esterase Urine RBC (Auto) Urine Microscopic WBC Ur Squamous Epith Cells Urine Bacteria Stool Occult Blood Blood Type Blood Type Confirm Antibody Screen Crossmatch BBK History Checked Attending/Attestation - Attestation I have personally seen and examined this patient.: Yes I have fully participated in the care of the patient.: Yes I have reviewed all pertinent clinical information: Yes Notes (Text): 05/29/17 10:44 MICU called GI consult on this 87yo male with PMHx significant for EtOH abuse, prostate cancer, HTN who was brought to the emergency room by his son for diarrhea and diffuse body aches s/p cardiac arrest requiring code blue and ACLS protocol with drop in Hb with brown stool and OG tube with black secretions. Patient was being actively resuscitated and coding when GI team went to assess. s/p two codes with pronouncement of prior to Gi full assessment.
--- NOTE | 2017-05-29 10:43 | CP.PCM.PRO ---
Pronouncement of Note - Clinical Findings Physical Exam: No Response Verbal/Painful Stimuli, Absent Peripheral Pulses{ Carotid & Femoral}, Absent Heart & Breath Sounds, No Pupillary Light Reflex, Pupils Fixed & Dilated, Absence of Vital Signs - Pronouncement Time Time of Pronouncement of : 10:37 - Notifications Pronouncement Notifications: Family Notified, Atending Notified Election Judge Notified: Yes (released by ME at 11:13 Maite Jasso) - Autopsy Autopsy Requested: No [place] [id number]
--- NOTE | 2017-05-29 11:54 | CP.PCM.DIS ---
Provider - Provider Date of Admission: 05/29/17 04:22 Attending physician: Fallon Hargrove DO Primary care physician: Dr Burgess Consults: GI : Dr Clifton Time Spent in preparation of Discharge (in minutes): 60 Diagnosis - Discharge Diagnosis (1) Upper GI hemorrhage Status: Acute (2) Anemia Status: Acute Comment: acute sec to GI bleed (3) Cardiac arrest Status: Acute (4) Lactic acidosis Status: Acute (5) Prostate CA Status: Chronic Comment: metastatic (6) Alcohol abuse Status: Chronic Hospital Course - Lab Results Lab Results: Most Recent Lab Values WBC 5.4 K/uL (4.8-10.8) D 05/29/17 08:50 RBC 2.78 Mil/uL (4.40-5.90) L 05/29/17 08:50 Hgb 8.1 g/dL (12.0-18.0) L 05/29/17 08:50 Hct 24.5 % (35.0-51.0) L 05/29/17 08:50 MCV 88.2 fl (80.0-94.0) D 05/29/17 08:50 MCH 29.3 pg (27.0-31.0) 05/29/17 08:50 MCHC 33.2 g/dL (33.0-37.0) 05/29/17 08:50 RDW 19.6 % (11.5-14.5) H 05/29/17 08:50 Plt Count 196 K/uL (130-400) D 05/29/17 08:50 MPV 7.1 fl (7.2-11.7) L 05/28/17 23:30 Neut % (Auto) 59.7 % (50.0-75.0) 05/28/17 23:30 Lymph % (Auto) 32.9 % (20.0-40.0) 05/28/17 23:30 [place] % (Auto) 6.6 % (0.0-10.0) 05/28/17 23:30 Eos % (Auto) 0.3 % (0.0-4.0) 05/28/17 23:30 Baso % (Auto) 0.5 % (0.0-2.0) 05/28/17 23:30 Neut # (Auto) 6.9 K/uL (1.8-7.0) 05/28/17 23:30 Lymph # (Auto) 3.8 K/uL (1.0-4.3) 05/28/17 23:30 [place] # (Auto) 0.8 K/uL (0.0-0.8) 05/28/17 23:30 Eos # (Auto) 0.0 K/uL (0.0-0.7) 05/28/17 23:30 Baso # (Auto) 0.1 K/uL (0.0-0.2) 05/28/17 23:30 pCO2 23 mm/Hg (35-45) L 05/29/17 09: pO2 67 mm/Hg (80-100) L 05/29/17 09: HCO3 14.5 mmol/L (21-28) L 05/29/17 09: ABG pH 7.31 (7.35-7.45) L 05/29/17 09: ABG Total CO2 12.3 mmol/L (22-28) L 05/29/17: ABG O2 Saturation 96.6 % (95-98) 05/29/17: ABG O2 Content 10.6 ML/dL (15-23) L 05/29/17: ABG Base Excess -13.3 mmol/L (-2.0-3.0) L 05/29/17 09: ABG Hemoglobin 7.9 g/dL (11.7-17.4) L 05/29/17: ABG Carboxyhemoglobin 1.4 % (0.5-1.5) 05/29/17: POC ABG HHb (Measured) 3.3 % (0.0-5.0) 05/29/17 09: ABG Methemoglobin 0.7 % (0.0-3.0) 05/29/17: ABG O2 Capacity 11.0 mL/dL (16-24) L 05/29/17 09:27 [place] Test Yes 05/29/17 09: ABG Potassium 5.3 mmol/L (3.6-5.2) H 05/28/17 23:48 VBG pH 7.37 (7.32-7.43) 05/29/17 02:50 VBG pCO2 31 mmHg (40-60) L 05/29/17 02:50 VBG HCO3 17.9 mmol/L 05/29/17 02:50 VBG Total CO2 18.9 mmol/L (22-28) L 05/29/17 02:50 VBG O2 Sat (Calc) 19.4 % (40-65) L 05/29/17 02:50 VBG Base Excess -6.2 mmol/L (0.0-2.0) L 05/29/17 02:50 VBG Potassium 5.3 mmol/L (3.6-5.2) H 05/29/17 02:50 A-a O2 Difference 617.0 mm/Hg 05/29/17 09:27 Hgb O2 Saturation 94.6 % (95.0-98.0) L 05/29/17 09:27 Sodium 139.0 mmol/L (132-148) 05/29/17 02:50 Chloride 109.0 mmol/L (98-107) H 05/29/17 02:50 Glucose 72 mg/dL (75-110) L 05/29/17 02:50 Lactate 7.4 mmol/L (0.7-2.1) H* 05/29/17 02:50 Vent Mode Prvc/ac 05/29/17 09:27 Mechanical Rate 16 05/29/17 09:27 FiO2 100.0 % 05/29/17 09:27 Tidal Volume 350 05/29/17 09:27 PEEP 5 05/29/17 09:27 Crit Value Called To Nancy amador md 05/29/17 02:50 Crit Value Called By 302 05/29/17 02:50 Crit Value Read Back Y 05/29/17 02:50 Blood Gas Notified Time 302 05/29/17 02:50 Sodium 141 mmol/l (132-148) 05/29/17 08:50 Potassium 5.8 MMOL/L (3.6-5.0) H 05/29/17 08:50 Chloride 108 mmol/L (98-107) H 05/29/17 08:50 Carbon Dioxide 14 mmol/L (22-30) L 05/29/17 08:50 Anion Gap 25 (10-20) H 05/29/17 08:50 BUN 50 mg/dl (9-20) H 05/29/17 08:50 Creatinine 1.8 mg/dl (0.8-1.5) H 05/29/17 08:50 Est GFR ( Amer) 44 05/29/17 08:50 Est GFR (Non-Af Amer) 36 05/29/17 08:50 POC Glucose (mg/dL) < 20 mg/dL (65-110) L* 05/29/17 10:06 Random Glucose 56 mg/dL (75-110) L 05/29/17 08:50 Calcium 6.9 mg/dL (8.4-10.2) L 05/29/17 08:50 Phosphorus 6.5 mg/dl (2.5-4.5) H 05/29/17 08:50 Magnesium 2.4 MG/DL (1.6-2.3) H 05/29/17 08:50 Total Bilirubin 0.6 mg/dl (0.2-1.3) 05/28/17 23:30 AST 113 U/L (17-59) H 05/28/17 23:30 ALT 23 U/L (21-72) 05/28/17 23:30 Alkaline Phosphatase 635 U/L (38-126) H 05/28/17 23:30 Troponin I 0.0640 ng/mL (0.00-0.120) 05/28/17 23:30 Total Protein 7.7 G/DL (6.3-8.2) 05/28/17 23:30 Albumin 3.4 g/dL (3.5-5.0) L 05/28/17 23:30 Globulin 4.3 gm/dL (2.2-3.9) H 05/28/17 23:30 Albumin/Globulin Ratio 0.8 (1.0-2.1) L 05/28/17 23:30 Lipase 76 U/L (23-300) 05/28/17 23:30 Arterial Blood Potassium 5.3 mmol/L (3.6-5.2) H 05/28/17 23:48 Venous Blood Potassium 5.3 mmol/L (3.6-5.2) H 05/29/17 02:50 Urine Color Yellow (YELLOW) 05/29/17 06:59 Urine Clarity Cloudy (Clear) 05/29/17 06:59 Urine pH 5.0 (5.0-8.0) 05/29/17 06:59 Ur Specific [place] 1.020 (1.003-1.030) 05/29/17 06:59 Urine Protein 30 mg/dL (NEGATIVE) 05/29/17 06:59 Urine Glucose (UA) Neg mg/dL (Normal) 05/29/17 06:59 Urine Ketones Negative mg/dL (NEGATIVE) 05/29/17 06:59 Urine Blood Moderate (NEGATIVE) 05/29/17 06:59 Urine Nitrate Negative (NEGATIVE) 05/29/17 06:59 Urine Bilirubin Negative (NEGATIVE) 05/29/17 06:59 Urine Urobilinogen 0.2-1.0 mg/dL (0.2-1.0) 05/29/17 06:59 Ur Leukocyte Esterase Neg Levi/uL (Negative) 05/29/17 06:59 Urine RBC (Auto) 1 /hpf (0-3) 05/29/17 06:59 Urine Microscopic WBC 3 /hpf (0-5) 05/29/17 06:59 Ur Squamous Epith Cells 1 /hpf (0-5) 05/29/17 06:59 Urine Bacteria Rare (<OCC) 05/29/17 06:59 Stool Occult Blood Positive (NEGATIVE) H 05/29/17 00:16 Blood Type O POSITIVE 05/29/17 01:05 Blood Type Confirm O POSITIVE 05/29/17 00:15 Antibody Screen Negative 05/29/17 01:05 Crossmatch See Detail 05/29/17 01:05 BBK History Checked No verified bt 05/29/17 01:05 - Hospital Course Hospital Course: Pt is an 87 y/o gent with hx of Prostate cancer, Alcohol Abuse, brought in by EMS because of abdominal pain and diarrhea. In the ED , the patient was very lethargic, acidotic and suddenly went in Cardiorespiratory Arrest. CPR done and pt was Intubated, resuscitated. He was also noted to have coffee ground material coming out during intubation. He was Started on IV Fluids IV PPI and was admitted to ICU. His Hemoglobin was only 6.0 and he was transfused 2 units PRBC. GI was consultede. Initially pt's son made him DNR however rescinded the DNR once pt was in the ICU. While in the ICU , the pt again went to CR arrest x and CPR done. During the second arrest , patient's family called off any further resuscitation . Pt then at 10:37 am. Instructional Resource Teacher notified and released the body at 11:13 am ( Gissell Jasso) Discharge Exam - Head Exam Head Exam: ATRAUMATIC Additional comments: Pt Discharge Plan - Follow Up Plan Condition: CRITICAL Disposition: WITH WITHOUT AUTOPSY
--- NOTE | 2017-05-29 14:46 | CARD ---
APPROVED REPORT EKG Measurement Heart [id number] LA 88P [id number] <Conclusion> Sinus tachycardia with short LA Left axis deviation Right bundle branch block Septal infarct, age undetermined Abnormal ECG
[2017-05-29] MEDS ORDERED: Piperacillin/Tazobact 3.375 GM in Sodium Chloride 0.9% 100 ML IVPB SCH (16:00)
--- NOTE | 2017-05-30 08:46 | PN ---
DATE: 05/29/2017 SUBJECTIVE: The patient in ICU, bed 432. Time spent 58 minutes. The patient is seen and evaluated at the bedside. Case was discussed in multidisciplinary ICU rounds. Past medical, surgical, and social history reviewed and discussed with family. An 87-year-old male with past medical history significant for carcinoma of prostate, alcohol dependence, and chronic diarrhea, chronically admitted through Emergency Room, complaining of persistent diarrhea, generalized weakness, and generalized body ache. Events in the Emergency Room reviewed. While in ER, the patient had an episode of nonbloody, non-bilious brown emesis and became pulseless status post cord, resuscitated with spontaneous ROSC. The patient was intubated and placed on mechanical ventilation. OGT output showed approximately 300 mL of coffee ground. Given 2 units of packed red blood cells. Multiple attempts for central line placement unsuccessful. The patient made DNR at the request of the patient's son. Admitted to ICU on IV fluids. In ICU, the patient on ventilator, AC/PRVC rate 16, tidal volume 350, FiO2 100%, PEEP of 5. No sedation. Remains unresponsive to verbal and painful stimuli. Observed rate 27, observed tidal volume 320, peak airway pressure 23, end-tidal CO2 of 24. NG tube in place. Torres in place draining clear urine. Rectal tube shows output with red discoloration. OBJECTIVE: VITAL SIGNS: Temperature 98.7, heart rate 109-120, blood pressure 66/45 with mean arterial pressure of 52, respiratory rate now 35, saturating 100%. INTAKE AND OUTPUT: Intake 200 mL, output not documented. Positive balance 200. Weight 90 pounds. HEENT: Pupils reactive, sluggish. Conjunctivae pale. Sclerae white. NECK: Supple. Endotracheal tube in place. CHEST: Bilateral breath sounds clear to auscultation anteriorly and laterally. HEART: Rhythm regular. S1 and S2 rapid. ABDOMEN: Bowel sounds are present. Soft. No palpable mass. No tenderness or rebound tenderness. EXTREMITIES: 1+ edema. DP palpable, no palpable cord. NEUROLOGIC: Pupils are reactive. No corneal reflex. No conjunctival reflex. No gag reflex. No response to verbal or painful stimuli. Deep tendon reflexes are 1 to 2+ plantar equivocal. CURRENT MEDICATIONS: Protonix drip as per the protocol, Zosyn 3.375 g IV q.8 hours, D50 2 ampules IV push x1. SCD in place. CURRENT LABORATORY DATA: WBC 5.4, hemoglobin 8.1, hematocrit 24.5, MCV 88.2, and platelet count 196,000. ABG; pH 7.31, pCO2 23, and pO2 of 67 on FiO2 100%. AC/PRVC 16 and 350. SMA-7; sodium 141, potassium 5.8, chloride 108, CO2 14, blood urea nitrogen 50, creatinine 1.8, random glucose 56, calcium 6.9, phosphorus 6.5, and magnesium 2.4. Urinalysis yellow, cloudy, RBC 1, WBC 3. Stool occult blood positive. Microbiology; no report. Blood culture not reported. CHEST X-RAY: Endotracheal tube terminating at the level of trachea proximally 3.5 cm above the elvia, heterogeneous right lung zone appear rather dense with borderline, similar changes in the medial left base. Small right basilar pneumothorax as noted in the CT abdomen. CT abdomen and pelvis shows large amount of stool in the colon with rectal distention and colonic wall thickening. Fluid filled [id number] small bowel loops with air fluid levels without contrast with very difficult to visualize transition, consistent with ileus versus partial developing small bowel obstruction, small right more than left pleural effusion, bibasilar right middle lobe and irregular nonspecific infiltrate and consolidation, consistent with atelectasis or pneumonia. IMPRESSION AND PLAN: 1. Elderly male with history of alcohol dependence and chronic diarrhea, admitted with generalized weakness and abdominal discomfort, status post cardiopulmonary resuscitation in the Emergency Room, remains obtunded with no response to verbal or painful stimuli. Neuro examination is significant for poorly reactive pupillary reflex, otherwise, no conjunctival, corneal or gag reflex, consistent with status post anoxic encephalopathy. 2. Upper gastrointestinal bleeding: The patient with history of alcohol dependence and has been on aspirin and tramadol at home for pain. 3. History of prostate carcinoma with chronic pain on tramadol: The patient was made DNR initially by family, currently resented and remains full code. The patient is initiated on IV fluid. Status post transfusion of 2 units of packed red blood cells. Follow repeat hemoglobin and hematocrit. Consider adding pressors to maintain mean arterial pressure above 65. Was on hold as per family request as IV access was not feasible. 4. Small right pneumothorax status post CPR/central lines, remains stable. Closely monitor worsening of pneumothorax. GI consult requested and I had seen the patient at the bedside. Discussed with family. The patient is a high risk for procedure given the underlying clinical condition now. Risk is being discussed with the family. During the process, the patient was noted to , became asystolic, code was called. ACLS protocol followed. Resuscitated after 20 minutes to sinus rhythm/sinus tachy cardia. Blood pressure is maintained. The patient is started on IV fluid and dopamine pending transfusion of packed red blood cells. The patient still remains clinically very labile. D10 at 25 mL started for hypoglycemia. Prognosis is poor. Discussed with the family. The patient had another episode of asystolic ACLS protocol initiated, could not be resuscitated. The patient was pronounced . Family was informed through a [employer] inspector. Family at the bedside. Giuliano Oseguera MD
--- NOTE | 2017-05-30 08:46 | PN ---
DATE: 05/29/2017 CARDIOPULMONARY RESUSCITATION NOTE SUBJECTIVE: An 87-year-old male admitted with GI bleeding, vomited coffee brown material, and hypoxic respiratory failure, intubated on mechanical ventilation, status post transfusion of packed red blood cells, initially made DNR by the family, subsequent rescinded and made him a full code. The patient developed asystole and code blue was called. Cardiopulmonary resuscitation initiated. ACLS protocol followed. IV fluid . Epinephrine given as per protocol. Blood sugar noted to be low. Given D50. The patient was subsequently resuscitated with ROSC, placed back on ventilatory support. Dopamine added to maintain systolic pressure more than 100. IV fluid with D10 at 25 mL per hour as well as the D5 normal at 100 mL per hour. After 10 to 15 minutes, the patient developed again became asystole. Resuscitation was achieved, protocol now followed, but the resuscitation was stopped at the request from family. The patient was pronounced at 10:37. PMD and family are informed. Giuliano Oseguera MD
== END 2017-05-29 10:37 | DRG 296 ==
LOC: H.ER 21:57 → H.ERHOLD 05-29 04:22 → H.ICU/CCU 05-29 05:20
PROVIDERS: ADMIT Student in an Organized Health Care Education/Training Program; ATTEND Student in an Organized Health Care Education/Training Program
PROC: 5A12012 Performance of Cardiac Output, Single, Manual (ICD-10-PCS; principal; 2017-05-29)
PROC: 5A1935Z Respiratory Ventilation, Less than 24 Consecutive Hours (ICD-10-PCS; 2017-05-29)
PROC: 0BH17EZ Insertion of Endotracheal Airway into Trachea, Via Natural or Artificial Opening (ICD-10-PCS; 2017-05-29)
PROC: 30233N1 Transfusion of Nonautologous Red Blood Cells into Peripheral Vein, Percutaneous Approach (ICD-10-PCS; 2017-05-29)
DX: I46.9 Cardiac arrest, cause unspecified (principal); J96.91 Respiratory failure, unspecified with hypoxia; G93.1 Anoxic brain damage, not elsewhere classified; E87.2 Acidosis; D62 Acute posthemorrhagic anemia; E87.5 Hyperkalemia; K92.2 Gastrointestinal hemorrhage, unspecified; J95.811 Postprocedural pneumothorax; F10.20 Alcohol dependence, uncomplicated; Z86.73 Personal history of transient ischemic attack (TIA), and cerebral infarction without residual deficits; Z87.891 Personal history of nicotine dependence; E16.2 Hypoglycemia, unspecified; C61 Malignant neoplasm of prostate